=== PATIENT | female | born 1930 ===

== ENCOUNTER 2020-08-09 14:33 | Outpatient (CLI) | payer OTHER ==
[~2020-08-09 14:33] MED LIST: AVANDIA4 MG PO; GLUCOVANCE 2.5/1 TAB PO; NORVASC10 MG PO
== END 2020-08-09 15:42 | disposition home or self-care (01) ==
LOC: OFIC 805 14:33
PROVIDERS: ATTEND Otolaryngology Otology & Neurotology
DX: H61.21 Impacted cerumen, right ear (principal); H90.3 Sensorineural hearing loss, bilateral